=== PATIENT | male | born 1945 | race Native Hawaiian/Other Pacific Islander ===

== ENCOUNTER 2016-11-19 08:11 | Outpatient (CLI) | payer OTHER ==
[2016-11-19 09:05] LABS: PLATELET COUNT 113 K/uL (142-355)
[2016-11-19 09:31] LABS: POTASSIUM 4.3 mmol/L (3.6-5.2); SODIUM 140 mmol/L (136-145)
== END 2016-11-19 10:00 | disposition home or self-care (01) ==
LOC: LABW 08:11
PROVIDERS: Internal Medicine
DX: E53.8 Deficiency of other specified B group vitamins (principal); C61 Malignant neoplasm of prostate; Z00.00 Encounter for general adult medical examination without abnormal findings; E78.4 Other hyperlipidemia; Z12.5 Encounter for screening for malignant neoplasm of prostate
CPT/HCPCS: 36415; 80048; 80061; 80076; 84443; 85027; G0103

== ENCOUNTER 2017-11-08 06:44 | Day surgery (SDC) | payer OTHER ==
[~2017-11-08] VITALS: Ht 30.5 cm; Wt 0.5 kg
== END 2017-11-08 08:55 | disposition home or self-care (01) ==
LOC: OR 06:44
PROC: 08RK3JZ Replacement of Left Lens with Synthetic Substitute, Percutaneous Approach (ICD-10-PCS; principal; 2017-11-08)
DX: H25.812 Combined forms of age-related cataract, left eye (principal); H52.222 Regular astigmatism, left eye
CPT/HCPCS: 66984; J0171

== ENCOUNTER 2019-02-24 09:58 | Outpatient (CLI) | payer OTHER | END 2019-02-24 23:44 | disposition home or self-care (01) | LOC: LABW 09:58 | DX: R97.20 Elevated prostate specific antigen [PSA] (principal) | CPT/HCPCS: 36415; 84154 ==

== ENCOUNTER 2020-07-30 13:55 | Outpatient (CLI) | payer OTHER | END 2020-07-30 21:58 | disposition home or self-care (01) | LOC: INF 13:55 | PROVIDERS: ATTEND Internal Medicine Endocrinology, Diabetes & Metabolism | DX: Z23 Encounter for immunization (principal) | CPT/HCPCS: 96372 ==

== ENCOUNTER 2020-08-27 13:33 | Outpatient (CLI) | payer OTHER | END 2020-08-27 22:50 | disposition home or self-care (01) | LOC: INF 13:33 | PROVIDERS: ATTEND Internal Medicine Endocrinology, Diabetes & Metabolism | DX: Z23 Encounter for immunization (principal) | CPT/HCPCS: 96372 ==

== ENCOUNTER 2021-01-17 10:15 | Outpatient (CLI) | payer OTHER | END 2021-01-17 23:00 | disposition home or self-care (01) | LOC: RAD 10:15 | PROVIDERS: ATTEND Internal Medicine | DX: M79.672 Pain in left foot (principal); M25.572 Pain in left ankle and joints of left foot; R60.0 Localized edema; R58 Hemorrhage, not elsewhere classified; T14.90XA Injury, unspecified, initial encounter ==

== ENCOUNTER 2021-02-14 10:50 | Outpatient (CLI) | payer OTHER | END 2021-02-14 22:37 | disposition home or self-care (01) | LOC: RAD 10:50 | PROVIDERS: ATTEND Orthopaedic Surgery | DX: M79.672 Pain in left foot (principal) ==

== ENCOUNTER 2021-07-27 20:17 | Emergency (ER) | payer OTHER ==
[~2021-07-27] VITALS: Ht 180.3 cm; Wt 81.6 kg
[2021-07-27 22:40] VITALS: BP 128/80; TEMP 98.9
== END 2021-07-27 22:40 | disposition home or self-care (01) ==
LOC: ED 20:17
DX: U07.1 COVID-19 (principal)
CPT/HCPCS: 87635; 99283; U0003